=== PATIENT | female | born 2000 | race Two or more races ===

== ENCOUNTER 2024-05-21 06:36 | Observation (INO) | payer OTHER ==
[~2024-05-21] VITALS: Ht 152.4 cm; Wt 84.4 kg
[2024-05-21] MEDS ORDERED: FERR-7 PO (07:56)
[2024-05-21] MEDS ORDERED: PREN27TA7 OR (07:56)
--- NOTE | 2024-05-21 08:07 | DVH ---
CLINICAL HISTORY: Term . Contractions. COMPARISON: None TECHNIQUE: biophysical profile was performed. Transabdominal sonographic images of the fetus we re obtained. FINDINGS: The fetus is in cephalic position. heart rate measures 118 BPM. Amniotic fluid index measures 12.8 cm. The placenta is posterior in position. BPP profile is an overall score of 8/8, with 2/2 points for breathing, with at least one episode of breathing over a 30 second duration during a 30 minute observation, 2/2 points for m ovements, with 3 or more discrete body or limb movements, 2/2 points for tone, with one or more episodes of extremity extension with return to flexion, or opening and closing of hand, and 2/ 2 points for amniotic fluid, with at least 1 pocket of amniotic fluid that measures 2 cm in 2 perpend icular planes. IMPRESSION: BPP score of 8/8.
[2024-05-21] MEDS ORDERED: CALC667C PO (08:46)
--- NOTE | 2024-05-22 12:49 | DVHDS2 ---
Physician Discharge Progress N Final Diagnosis: labor check Operations or Procedures: Operations or Procedures nst,sono Condition on Discharge: Good Disposition: Home Discharge Instructions: Diet: Regular Activity: No Restrictions, As Tolerated Medications: na Follow Up Care: Specialist: 2d Discharge Statement: "Patient was advised to return to the ER or call 911 if any headaches, dizziness, shortness of breath, chest pain, abdominal pain, bleeding, fevers, or worsening of medical condition. Patient was counseled about treatment plan, medications, possible side effects, patientverbalized understanding. All questions were answered to the best of my ability. This discharge took greater then 30 minutes in planning, reviewing documentation, counseling the patient, and discussing with other team members." ISHA BRUCE DO May 22, 2024 12:48
== END 2024-05-21 08:39 | disposition home or self-care (01) ==
LOC: LDRP 06:36
PROVIDERS: ADMIT Obstetrics & Gynecology; ATTEND Obstetrics & Gynecology
DX: O62.9 Abnormality of forces of labor, unspecified (principal); Z3A.39 39 weeks gestation of pregnancy; Z79.899 Other long term (current) drug therapy; Z98.890 Other specified postprocedural states
CPT/HCPCS: 59025; 76818; 81002; 94760; G0378

== ENCOUNTER 2024-05-21 11:45 | Inpatient (IN) | payer OTHER ==
[~2024-05-21] VITALS: Ht 152.4 cm; Wt 84.4 kg
[~2024-05-21 11:45] MED LIST: CALC667C PO; FERR-7 PO; PREN27TA7 OR
[2024-05-21] MEDS ORDERED: NALBUPHINE HCL 10 MG/1ml INJECTION IV PRN (12:15)
[2024-05-21] MEDS ORDERED: BUTORPHANOL TARTRATE 2 MG/1 ML VIAL IV PRN ×2 (12:15)
[2024-05-21] MEDS ORDERED: TERBUTALINE SULFATE 1 MG/ML 1ML VIAL SC PRN (12:15)
--- NOTE | 2024-05-21 12:41 | DVHHP2 ---
OB CC & HPI Date Date of Admission: May 21, 2024 Patient Identification: : 1 Para: 0 EDC: May 22, 2024 EGA: 39wks Chief Complaints: Reason for admission: active labor Admission Nurse Assessment Rev: No History of Present Complaints pt is admitted for labor,no rom or vag bleeding Past Medical History Cardiac: No pertinent Hx Pulmonary: No pertinent Hx Central Nervous System: No pertinent Hx GI: No pertinent Hx Hemotology/Oncology: No pertinent Hx Hepatobiliary: No pertinent Hx Psychiatric: No pertinent Hx Musculoskeletal: No pertinent Hx Rheumotologic: No pertinent Hx Infectious Disease: No peritnent Hx ENT: No pertinent Hx Renal/: No pertinent Hx Endocrine: No pertinent Hx Dermatology: No pertinent Hx Past Surgical History: No pertinent Hx OB History OB History Care: Good Care Obstetrical Complications: None Medical Complications: None Allergies: Coded Allergies: Shellfish Allergy (Verified Allergy, Severe, 05/21/24) Home Meds Reported Medications Calcium Acetate (Phosphate Bin (Calcium Acetate) 667 Mg Cap, 667 MG PO TIDWM, MG 05/21/24 Ferrous Sulfate (Iron) 325 Mg Tab, 325 MG PO, TAB 05/21/24 Vit W/ Ferrous Fumara () 1 Tab Tab, 1 TAB OR DAILY, TAB 05/21/24 Current Medications Current Medications Medications (Trade) Dose Ordered Sig/Kathleen Route PRN Reason Start Time Stop Time Status Last Admin Lactated Ringer's 1,000 ml @ 125 mls/hr Q8H IV 05/21/24 12:15 UNV Nalbuphine HCl (Nubain) 10 mg Q4HP PRN IV MODERATE PAIN (4-6 PAIN SCALE) 05/21/24 12:15 UNV Penicillin G Potassium [id number] units/Dextrose 50 ml @ 100 mls/hr Q4H IV 05/21/24 16:15 UNV Witch Gisele (Tucks) 1 pad PRN PRN TOP PERINEAL AREA DISCOMFORT 05/21/24 12:15 UNV Sodium Lauryl Sulfate (Phisoderm) 240 ml PRN PRN TOP PERINEAL AREA DISCOMFORT 05/21/24 12:15 UNV Benzocaine (Dermoplast) 1 applic PRN PRN TOP PERINEAL AREA DISCOMFORT 05/21/24 12:15 UNV Butorphanol Tartrate (Stadol Injection) 1 mg Q4HPRN PRN IV MODERATE PAIN (4-6 PAIN SCALE) 05/21/24 12:15 UNV Butorphanol Tartrate (Stadol Injection) 2 mg Q4HPRN PRN IV SEVERE PAIN (7-10 PAIN SCALE) 05/21/24 12:15 UNV Lidocaine HCl (Xylocaine) 20 ml ONCE PRN IJ PERINEAL AREA DISCOMFORT 05/21/24 12:15 UNV Oxytocin 1,000 ml @ 6 ml/hr Q24H IV 05/21/24 12:15 UNV Terbutaline Sulfate (Brethine Inj) 0.25 mg ONCE PRN SC Uterine tachysystole 05/21/24 12:15 UNV Family & Social History Family/Social History Blood Type: A+ Rubella: immune RPR/VDRL: Negative GBS Status: Positive HBsAG: Negative Review of Systems Constitutional: No symptom reported Ears, Nose, & Throat: No symptom reported Eyes: No symptom reported Pulmonary/Respiratory: No symptom reported Cardiovascular: No symptom reported Gastrointestinal: No symptom reported Genitourinary: No symptom reported Musculoskeletal: No symptom reported Skin: No symptom reported Psychiatric: No symptom reported Endocrine: No symptom reported Hemotologic/Lymphatic: No symptom reported OB Admission Exam Physical Exam HEENT: TMs Normal, Fontanelles Normal, Nasal Mucosa Normal, Eyes non-injected, Oropharynx Normal, PERRLA, Moist Membranes, EOMI Heart: Rhythm Normal Lungs: Clear Abdomen: Non tender Extremities: Normal Reflexes: Normal Cervical Dilatation: 4cm Effacement: 75% Station: -2 Membranes: Intact Heart Rate: 130's Accelerations: Accelerations Present Decelerations: No Decelerations Short Term Variability: Present [employer] Supervisor Variability: Average (6-25) Contractions on Admission: < 5 Minutes Apart Intensity: Moderate OB Plan Plan Admitting Diagnosis: iup at 39 wks in active Labor Plan: Expectant Management Other Plan: informed consent obtained ISHA BRUCE DO May 21, 2024 12:41
[2024-05-21 12:49] LABS: Basophils # (auto) 0 10 ^3/uL (0-0.2); Basophils % (auto) 0.1 % (0.0-2.0); Eosinophils # (auto) 0 10 ^3/uL (0-0.8); Eosinophils % (auto) 0.1 % (0.0-7.0); Hematocrit 34.5 % (36.0-46.0); Hemoglobin 11.2 g/dL (12.2-16.2); Lymphocytes # (auto) 4.9 10 ^3/uL (0.4-5.4); Lymphocytes % (auto) 53.3 % (10.0-50.0); Mean Corpuscular Hemoglobin 25.8 pg (28.0-32.0); Mean Corpuscular Hgb Conc. 32.4 g/dL (32.0-36.0); Mean Corpuscular Volume 79.7 fL (80.0-100.0); Monocytes # (auto) 0.3 10 ^3/uL (0-1.3); Monocytes % (auto) 3.7 % (0.0-12.0); Neutrophils % (auto) 42.8 % (37.0-80.0); Nucleated Red Blood Cells % 0.1 %; Platelet Count (auto) 256 10^3/uL (140-450); Red Blood Cells 4.32 10^6/uL (4.0-5.20); White Blood Cell 9.3 10^3/uL (4.4-10.8)
[2024-05-21 13:00] LABS: INR 0.96 (0.9-1.15); Partial Thromboplastin Time 27.6 SEC (24.5-34.5); Prothrombin Time 10.2 sec (9.3-11.8)
[2024-05-21] MEDS: LACTATED RINGER'S 1,000 ML IV SCH (13:06)
[2024-05-21] MEDS: fentaNYL CITRATE 100 MCG/2 ML VL ONE (13:07)
[2024-05-21] MEDS: ePHEDrine SULFATE 50 MG/ML AMP ONE (13:08)
[2024-05-21 13:11] LABS: Anion Gap 9 (5-15); BUN/Creatinine Ratio 14.3 (10.0-20.0); Calcium 9.2 mg/dL (8.7-10.4); Carbon Dioxide 21 mmol/L (20-31); Chloride 105 mmol/L (98-107); Potassium 3.6 mmol/L (3.5-5.1)
[2024-05-21 13:12] LABS: Alanine Aminotransferase 57 U/L (7-40); Albumin 3.6 g/dL (3.2-4.8); Alkaline Phosphatase 188 U/L (46-116); Aspartate Aminotransferase 68 U/L (13-40); Bilirubin, Total 0.4 mg/dL (0.2-1.0); Blood Urea Nitrogen 9 mg/dL (9-23); Glucose 106 mg/dL (74-106); Sodium 135 mmol/L (136-145)
--- NOTE | 2024-05-21 13:59 | EPIDURAL ---
Anesthesia Procedural Note - Epidural Informed consent obtained?: Yes Medication Administered: Fentanyl 100 mcg Spinal level of insertion: L4-L5 Test dose of lidocaine & Epine: Negative Infusion started: Yes Start time: 13:15 End time: 13:45 Procedure description Procedure description: Called for labor analgesia. Patient is at 39+ weeks, in labor, requesting epidural. History taken, chart reviewed and patient examined at 1315 (BP 128/62 HR 99 spO2 99). Informed consent for CSE obtained. Sitting position, sterile prep and drape. Time out done at 1318 (BP 125/80 HR 105 spO2 99). L4-5 space infiltrated with 1% lido. Epidural needle placed with NIKITA at 6.5 cm. 25G spinal needle +clear CSF. 15 mcg fentanyl at 1325 (BP 125/60 HR 111 spO2 98). Epidural catheter secured. Aspiration and test dose (3cc 1.5% lido with epi) negative at 1329 (BP 125/60 HR 105 spO2 99). 85 mcg fentanyl given at 1333 (BP 110/58 HR 102 spO2 98). Patient reports pain relief. 0.2 %ropivacaine infusion started at 1345. Will follow as needed. PAUL RIOS MD May 21, 2024 13:59
[2024-05-21] MEDS: ROPIVACAINE HCL 200 ML ONE (14:11)
[2024-05-21] MEDS: DERMOPLAST 60ML BOTTLE TOP PRN (14:12)
[2024-05-21] MEDS: PHISODERM TOP SOLN 240ML BTL TOP PRN (14:12)
[2024-05-21] MEDS: WITCH HAZEL-GLYCERIN PAD TOP PRN (14:12)
[2024-05-21] MEDS: PENICILLIN G POT 5MIL/D5 50ML 50 ML IV ONE (14:17)
[2024-05-21 15:16] LABS: Urine Bacteria FEW /hpf (None Seen); Urine Blood 2+ /uL (Negative); Urine Clarity Turbid (Clear); Urine Color Yellow (Yellow); Urine Mucus FEW (None Seen); Urine Protein, UAD TRACE (Negative); Urine Specific Gravity 1.024 (1.001-1.035); Urine Squamous Epithelial Cell FEW /hpf (<5); Urine Urobilinogen 8 mg/dL (Negative); Urine WBC 15 /HPF (0-5)
[2024-05-21] MEDS: LACT. RINGERS/OXYTOCIN 20UNITS 1,000 ML IV SCH (15:35)
[2024-05-21 15:36] LABS: Amphetamine Screen, Urine Neg (NEGATIVE); Barbiturate Scree,Urine Neg (NEGATIVE); Benzodiazephine Screen, Urine Neg (NEGATIVE); Cannabinoid Screen, Urine Neg (NEGATIVE); Cocaine Screen, Urine Neg (NEGATIVE); Opiate Scree,Urine Neg (NEGATIVE); Phencyclidine Screen, Urine Neg (NEGATIVE)
[2024-05-21] MEDS: fentaNYL CITRATE 100 MCG/2 ML VL IV ONE (15:37)
--- NOTE | 2024-05-21 15:44 | DVHPN2 ---
Chief Complaints Patient reports: No new complaints Nursing reports: No new complaints Objective Vitals Vital Signs Date Time Temp Pulse Resp B/P (MAP) Pulse Ox O2 Delivery O2 Flow Rate FiO2 05/21/24 15:37 110/58 Medications Current Medications Medications (Trade) Dose Ordered Sig/Kathleen Route PRN Reason Start Time Stop Time Status Last Admin Benzocaine (Dermoplast) 1 applic PRN PRN TOP PERINEAL AREA DISCOMFORT 05/21/24 12:15 05/21/24 14:12 Butorphanol Tartrate (Stadol Injection) 1 mg Q4HPRN PRN IV MODERATE PAIN (4-6 PAIN SCALE) 05/21/24 12:15 Butorphanol Tartrate (Stadol Injection) 2 mg Q4HPRN PRN IV SEVERE PAIN (7-10 PAIN SCALE) 05/21/24 12:15 Lactated Ringer's 1,000 ml @ 125 mls/hr Q8H IV 05/21/24 12:15 05/21/24 13:41 Lidocaine HCl (Xylocaine) 20 ml ONCE PRN IJ PERINEAL AREA DISCOMFORT 05/21/24 12:15 Nalbuphine HCl (Nubain) 10 mg Q4HP PRN IV MODERATE PAIN (4-6 PAIN SCALE) 05/21/24 12:15 Oxytocin 1,000 ml @ 6 ml/hr Q24H IV 05/21/24 12:15 05/21/24 15:35 Penicillin G Potassium [id number] units/Dextrose 50 ml @ 100 mls/hr Q4H IV 05/21/24 16:15 Sodium Lauryl Sulfate (Phisoderm) 240 ml PRN PRN TOP PERINEAL AREA DISCOMFORT 05/21/24 12:15 05/21/24 14:12 Terbutaline Sulfate (Brethine Inj) 0.25 mg ONCE PRN SC Uterine tachysystole 05/21/24 12:15 Witch Gisele (Tucks) 1 pad PRN PRN TOP PERINEAL AREA DISCOMFORT 05/21/24 12:15 05/21/24 14:12 Others ve-8cm/90/-1 Studies Laboratory Tests 05/21/24 12:20 Test 05/21/24 12:20 Range/Units Serum Glucose 106 74-106 mg/dL Ass/Plan Assessment labor Plan cont with ISHA Faith DO May 21, 2024 15:44
[2024-05-21] MEDS ORDERED: PENICILLIN G POTASSIUM 2,500,000 UNITS in D5W 5% 50 ML IV SCH (16:15)
--- NOTE | 2024-05-21 16:16 | DVHPN2 ---
Chief Complaints Patient reports: No new complaints Nursing reports: No new complaints Objective Vitals Vital Signs Date Time Temp Pulse Resp B/P (MAP) Pulse Ox O2 Delivery O2 Flow Rate FiO2 05/21/24 15:37 110/58 Medications Current Medications Medications (Trade) Dose Ordered Sig/Kathleen Route PRN Reason Start Time Stop Time Status Last Admin Benzocaine (Dermoplast) 1 applic PRN PRN TOP PERINEAL AREA DISCOMFORT 05/21/24 12:15 05/21/24 14:12 Butorphanol Tartrate (Stadol Injection) 1 mg Q4HPRN PRN IV MODERATE PAIN (4-6 PAIN SCALE) 05/21/24 12:15 Butorphanol Tartrate (Stadol Injection) 2 mg Q4HPRN PRN IV SEVERE PAIN (7-10 PAIN SCALE) 05/21/24 12:15 Lactated Ringer's 1,000 ml @ 125 mls/hr Q8H IV 05/21/24 12:15 05/21/24 13:41 Lidocaine HCl (Xylocaine) 20 ml ONCE PRN IJ PERINEAL AREA DISCOMFORT 05/21/24 12:15 Nalbuphine HCl (Nubain) 10 mg Q4HP PRN IV MODERATE PAIN (4-6 PAIN SCALE) 05/21/24 12:15 Oxytocin 1,000 ml @ 6 ml/hr Q24H IV 05/21/24 12:15 05/21/24 15:35 Penicillin G Potassium [id number] units/Dextrose 50 ml @ 100 mls/hr Q4H IV 05/21/24 16:15 Sodium Lauryl Sulfate (Phisoderm) 240 ml PRN PRN TOP PERINEAL AREA DISCOMFORT 05/21/24 12:15 05/21/24 14:12 Terbutaline Sulfate (Brethine Inj) 0.25 mg ONCE PRN SC Uterine tachysystole 05/21/24 12:15 Witch Gisele (Tucks) 1 pad PRN PRN TOP PERINEAL AREA DISCOMFORT 05/21/24 12:15 05/21/24 14:12 Others ve-9.5cm/0 Studies Laboratory Tests 05/21/24 12:20 Test 05/21/24 12:20 Range/Units Serum Glucose 106 74-106 mg/dL Ass/Plan Assessment labor Plan labor down ISHA BRUCE May 21, 2024 16:16
[2024-05-21] MEDS: LACT. RINGERS/OXYTOCIN 20UNITS 500 ML IV ONE ×2 (17:37)
[2024-05-21] MEDS: METHYLERGONOVINE MALEATE 0.2 MG/ML AMP IM ONE ×2 (17:38→17:39)
--- NOTE | 2024-05-21 17:51 | LDN2 ---
Labor and Delivery Note Date 05/21/24 Age 23 1 Para 1 EDC 1-31 EGA 39wks Diagnosis labor Vaginal Delivery: VTX Vacuum Assisted: Yes Placenta: Spontaneous Sex: Male Apgars 8-8 Amniotic Fluid: Clear Anesthesia epidural,xylocaine Episiotomy: Yes Extension: Yes (midline epis with 2nd deg perineal lac) Repaired with 2-0 chromic EBL 300ml Labs Blood Bank 05/21/24 12:20: Blood Type A POSITIVE Complications none Conditions stable Comments/Significant Med Boyd spec exam no cxal lac vaccum and epis applied due to poor pushing effort and decl.pt informed prior to performing it and was granted permission ISHA BRUCE DO May 21, 2024 17:51
[2024-05-21] MEDS: LIDOCAINE 2%HCL (LOCAL ANESTH.) INJ 20ML MDV IJ PRN (17:54)
[2024-05-21] MEDS ORDERED: ONDANSETRON ODT 4 MG TAB PO PRN (18:00)
[2024-05-21] MEDS: ACETAMINOPHEN 325 MG TAB PO PRN (18:32)
[2024-05-21] MEDS: IBUPROFEN 800 MG TAB PO PRN (19:43)
[2024-05-21] MEDS: ceFAZolin 1GM/50ML 50 ML IV SCH (21:59)
[2024-05-21] MEDS ORDERED: ceFAZolin 1GM/50ML 50 ML IV SCH (22:00)
[2024-05-21] MEDS: DOCUSATE SOD 100 MG CAP PO SCH (22:03)
[2024-05-21 22:53] VITALS: BP 96/53; PULSE 88; RESP 16; TEMP 97.9; O2SAT 96
[2024-05-22] VITALS (7 sets, daily range): BP systolic 87–140; BP diastolic 36–84; PULSE 66–93; RESP 12–20; TEMP 97.5–98.3; O2SAT 96–100
--- NOTE | 2024-05-22 13:04 | DVHPN2 ---
Chief Complaints Patient reports: No new complaints Nursing reports: No new complaints Objective Vitals Vital Signs Date Time Temp Pulse Resp B/P (MAP) Pulse Ox O2 Delivery O2 Flow Rate FiO2 05/22/24 11:00 97.5 77 20 87/48 (61) 96 97.5 05/22/24 07:00 Room Air 0.0 Medications Current Medications Medications (Trade) Dose Ordered Sig/Kathleen Route PRN Reason Start Time Stop Time Status Last Admin Acetaminophen (Tylenol Tablet) 650 mg Q4HP PRN PO MILD PAIN (1-3 PAIN SCALE) 05/21/24 18:00 05/22/24 07:19 Cefazolin Sodium 50 ml @ 100 mls/hr Q8HR IV 05/21/24 22:00 05/22/24 14:29 05/22/24 05:49 Docusate Sodium (Colace Capsule) 200 mg HS PO 05/21/24 22:00 05/21/24 22:03 Ibuprofen (Motrin Tablet) 800 mg Q6HR PRN PO MODERATE PAIN (4-6 PAIN SCALE) 05/21/24 18:00 05/22/24 05:12 Ondansetron HCl (Zofran Po) 4 mg Q4HPRN PRN PO NAUSEA / VOMITING 05/21/24 18:00 Penicillin G Potassium [id number] units/Dextrose 50 ml @ 100 mls/hr Q4H IV 05/21/24 16:15 Cancel General: Normal Lungs: Normal Cardiovascular: Normal Abdominal: Soft Extremities: Normal Studies Laboratory Tests 05/21/24 12:20 Test 05/21/24 12:20 Range/Units Serum Glucose 106 74-106 mg/dL Ass/Plan Assessment s/p vaccum assist vag del Plan [facility] ISHA BRUCE May 22, 2024 13:04
--- NOTE | 2024-05-22 13:05 | DVHDS2 ---
Obstetrics Discharge Summary Obstetrics Discharge Summary Date of Admission: May 21, 2024 Date of Discharge: May 22, 2024 Reason For Admission: Onset of Labor Procedures: NST Intrapartum Procedures: Spontaneous vaginal deliv, Vacuum Extraction, Episiotomy Procedures: None Operative Complicat: Laceration (Perineal) Discharge Diagnosis: Term -Delivered Discharge Information: Activity (Other), Diet (Routine), Medications (None), Instructions (Routine), Discharge to (Home), Discarge date (05-22) ISHA BRUCE DO May 22, 2024 13:05
[2024-05-22] MEDS: LACTATED RINGER'S 1,000 ML IV ONE (15:37)
[2024-05-22] MEDS: ceFAZolin 1GM/50ML 50 ML IV SCH (21:51)
[2024-05-23 03:00] VITALS: BP 91/39; PULSE 93; RESP 16; TEMP 98; O2SAT 98
[2024-05-23 07:00] VITALS: BP 90/42; PULSE 98; RESP 16; TEMP 99; O2SAT 96
[2024-05-23 11:17] VITALS: BP 107/59; PULSE 78; RESP 16; TEMP 98.1; O2SAT 98
--- NOTE | 2024-05-23 13:12 | DVHPN2 ---
Chief Complaints Patient reports: No new complaints Nursing reports: No new complaints Objective Vitals Vital Signs Date Time Temp Pulse Resp B/P (MAP) Pulse Ox O2 Delivery O2 Flow Rate FiO2 05/23/24 11:17 98.1 78 16 107/59 (75) 98 98.1 05/23/24 07:18 Room Air 05/22/24 07:00 0.0 Medications Current Medications Medications (Trade) Dose Ordered Sig/Kathleen Route PRN Reason Start Time Stop Time Status Last Admin Cefazolin Sodium 50 ml @ 100 mls/hr Q8HR IV 05/22/24 22:00 05/23/24 05:31 General: Normal Lungs: Normal Cardiovascular: Normal Abdominal: Soft Extremities: Normal Studies Laboratory Tests 05/21/24 12:20 Test 05/21/24 12:20 Range/Units Serum Glucose 106 74-106 mg/dL Ass/Plan Assessment s/p vaccum assist vag del Plan SUPPORTIVE CARE ISHA BRUCE DO May 23, 2024 13:12
[2024-05-23 15:00] VITALS: BP 110/68; PULSE 85; RESP 16; TEMP 98.6; O2SAT 98
[2024-05-25 09:06] LABS: Treponema Pallidum Ab LC Non Reactive (Non Reactive)
== END 2024-05-23 16:00 | disposition home or self-care (01) | DRG 807 ==
LOC: LDRP 11:45 → OBSVTOIN 11:45 → LDRP 23:45
PROVIDERS: ADMIT Obstetrics & Gynecology; ATTEND Obstetrics & Gynecology
PROC: 10D07Z6 Extraction of Products of Conception, Vacuum, Via Natural or Artificial Opening (ICD-10-PCS; principal; 2024-05-21)
PROC: 0KQM0ZZ Repair Perineum Muscle, Open Approach (ICD-10-PCS; 2024-05-21)
PROC: 0W8NXZZ Division of Female Perineum, External Approach (ICD-10-PCS; 2024-05-21)
PROC: 3E0R3BZ Introduction of Anesthetic Agent into Spinal Canal, Percutaneous Approach (ICD-10-PCS; 2024-05-21)
PROC: 00HU33Z Insertion of Infusion Device into Spinal Canal, Percutaneous Approach (ICD-10-PCS; 2024-05-21)
DX: O70.1 Second degree perineal laceration during delivery (principal); Z37.0 Single live birth; Z91.013 Allergy to seafood; Z3A.39 39 weeks gestation of pregnancy
CPT/HCPCS: 36415; 59025; 59409; 62282; 80053; 80307; 81001; 81002; 85025; 85610; 85730; 86592; 86780; 86803; 86850; 86900; 86901; 94760; 94762; 96360; 96361; 96365; 96366; 96372; G0378; J2540; J2590; J7060